=== PATIENT | female | born 2005 | race Caucasian/White ===

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

== ENCOUNTER → 2024-08-05 14:30 | Outpatient (BNVA) | payer MEDICAID, SELFPAY | PROVIDERS: PCP Family Medicine; Visit Provider Nurse Practitioner Family | DX: R00.2 Palpitations (principal) | CPT/HCPCS: 93005 ==

== ENCOUNTER → 2024-09-10 13:53 | Outpatient (BNVA) | payer MEDICAID, SELFPAY | PROVIDERS: PCP Family Medicine; Visit Provider Family Medicine | DX: Z30.9 Encounter for contraceptive management, unspecified (principal) | CPT/HCPCS: 81025 ==

== ENCOUNTER → 2024-09-23 07:40 | Outpatient (BNVA) | payer MEDICAID, SELFPAY | PROVIDERS: PCP Family Medicine; Visit Provider Emergency Medicine | DX: J02.9 Acute pharyngitis, unspecified (principal); J20.8 Acute bronchitis due to other specified organisms; B96.89 Other specified bacterial agents as the cause of diseases classified elsewhere; R10.32 Left lower quadrant pain | CPT/HCPCS: 87071; 87880 ==

== ENCOUNTER 2024-11-16 02:27 | Emergency (ER) | payer MEDICAID, SELFPAY ==
[2024-11-16 02:30] VITALS: BP 147/76; PULSE 92; RESP 18; TEMP 36.6; O2SAT 100; BMI 22.1
[2024-11-16 03:08] VITALS: PULSE 85; RESP 16; O2SAT 98
--- NOTE | 2024-11-16 03:08 | XRR_ITS ---
PROCEDURE INFORMATION: Exam: XR Chest Exam date and time: 11/16/2024 3:12 AM Age: 19 years old Clinical indication: C/O hemoptysis TECHNIQUE: Imaging protocol: Radiologic exam of the chest. Views: 1 view. COMPARISON: CR XR chest 1V portable [id number] 11/24/2022 12:29 AM FINDINGS: Lungs: Unremarkable. No consolidation. Pleural spaces: Unremarkable. No pleural effusion. No pneumothorax. Heart/Mediastinum: Unremarkable. No cardiomegaly. Bones/joints: Unremarkable. XR/XR chest 1V portable [id number] IMPRESSION: No acute findings.
--- NOTE | 2024-11-16 03:20 | W.ED.ANXIETY ---
HPI - Anxiety General: Chief Complaint: Anxiety Stated Complaint: stomach pain, spit up blood, super anxious Time Seen by Provider: 11/16/24 02:42 History of Present Illness: 19-year-old female with a history of anxiety. She has also been having abdominal pain. She was experiencing abdominal pain last night, which made her more anxious. She believes she had a panic attack at home. But, in the process of having this panic attack, she coughed up some bloody sputum, which made her more anxious. Anxiety is improved at this point, but she still has bloody sputum and is still having some upper abdominal pain. Related Data Home Medications ?Medication ?Instructions ?Recorded ?Confirmed medroxyprogesterone 150 mg/mL 150 mg IM .EVERY 3 MONTHS 10/23/23 11/05/24 intramuscular suspension Previous Rx's ?Medication ?Instructions ?Recorded sumatriptan succinate 25 mg tablet See Rx Instructions PO .COMPLEX 08/04/24 #10 tabs hydroxyzine HCl 50 mg tablet 50 mg PO QID PRN Anxiety #180 tabs 08/22/24 omeprazole 20 mg capsule,delayed 20 mg PO DAILY #90 caps 08/22/24 release quetiapine 50 mg tablet 50 mg PO BEDTIME #90 tabs 08/22/24 venlafaxine 75 mg capsule,extended 75 mg PO DAILY #90 caps 08/22/24 release 24 hr albuterol sulfate 90 mcg/actuation 2 puff inhalation Q6H PRN 09/23/24 aerosol inhaler shortness of breath or wheezing #8.5 grams fhjsegzchhumlwk-kmldkajkzubktji-DT 5 ml PO Q6H PRN cold symptoms #118 09/23/24 2 mg-30 mg-10 mg/5 mL oral syrup mL (Bromfed DM) dexamethasone 2 mg tablet 10 mg (5 x 2 mg) PO DAILY 1 day #5 09/23/24 tabs Allergies Allergy/AdvReac Type Severity Reaction Status Date / Time fluoxetine Allergy ALGY-Anaphy Verified 11/16/24 02:36 laxis [facility] ED PFSH: Medical History Depression Anxiety No pertinent family history Surgical History No pertinent past surgical history Family History Father Hypertension Social History Smoking and tobacco/nicotine status: current some day tobacco/nicotine user e-cigarettes E-Cigarette Details: vaporizer device and with nicotine Alcohol intake: never Substance/Drug Use: never Adopted: No service: No Current occupational exposures/hazards: No Current gender identity: Female Physical Exam Const: COMMON NORMALS: no acute distress GENERAL APPEARANCE: cooperative; not ill appearing and not frail appearing HENMT: COMMON NORMALS: normocephalic, atraumatic, Normal external nose present and Normal nasal mucous membranes and turbinates present HEAD & SCALP: normocephalic and atraumatic FACE & SINUS: normal facial exam and face symmetric NOSE: Normal external nose present, Normal nares present and Normal nasal mucous membranes and turbinates present; no Epistaxis present THROAT: posterior oropharynx normal Eye: COMMON NORMALS: Equal, round and reactive pupils present and EOMs intact bilaterally PUPIL: Yes Equal, round and reactive pupils present Neck/C-Spine: GENERAL: Yes trachea midline Chest: CHEST: Yes Symmetrical chest wall rise Resp: COMMON NORMALS: normal respiratory effort, No retractions, No use of accessory muscles and clear to auscultation bilaterally AUSCULTATION: clear to auscultation bilaterally Cardio: COMMON NORMALS: regular rate and regular rhythm RATE: regular rate RHYTHM: regular rhythm GI: COMMON NORMALS: Normal to inspection, nondistended, normoactive bowel sounds present and Soft to palpation PALPATION: Yes Soft to palpation and Yes Tenderness to palpation present (GI) (Epigastric) Details: LUQ and RUQ Extremity: COMMON NORMALS: no pedal edema Neuro: WILLAM COMA SCALE: document GCS findings Willam coma scale eye opening: Spontaneous Willam coma scale verbal response: Orientated Willam coma scale motor response: Obey commands Willam coma scale total score: 15 SENSORY EXAM: Yes extremities (intact) Psych: COMMON NORMALS: speech normal SPEECH: Yes normal speech Skin: COMMON NORMALS: no rashes or lesions noted GENERAL SKIN EXAM: no rashes or lesions noted Course Vital Signs: Vital signs: Vital Signs Temperature 97.8 F 11/16/24 02:30 Pulse Rate 82 11/16/24 04:52 Respiratory Rate 16 11/16/24 04:52 Blood Pressure 138/79 11/16/24 04:52 Pulse Oximetry 99 11/16/24 04:52 Oxygen Delivery Me thod Room Air 11/16/24 02:30 MDM - Anxiety Medical Decision Making Patient has had bloody sputum. She produces frothy moderate sputum in the ER. She is nontachycardic. Nonhypoxic. Her chest x-ray is normal. She does have some tenderness in the epigastrium and across the upper abdomen. Her CRP is 3. CBC is normal. BMP is not remarkable. Liver enzymes are normal. Urinalysis is negative Given normal laboratory findings, she will be allowed home. She knows to return for continued hemoptysis, or other new symptoms. Lab Data 11/16/24 03:16 11/16/24 03:16 Radiology Impressions Chest X-Ray 11/16/24 03:08 IMPRESSION: No acute findings. Laboratory Results WBC 8.34 10^3/uL (4.5-13.0) 11/16/24 03:16 RBC 4.44 10^6/uL (3.85-5.65) 11/16/24 03:16 Hgb 12.80 g/dL (12.4-14.8) 11/16/24 03:16 Hct 40.0 % (36-47) 11/16/24 03:16 MCV 90.1 fl (85-98) 11/16/24 03:16 MCH 28.8 pg (27-33) 11/16/24 03:16 MCHC 32.0 g/dL (30-55) 11/16/24 03:16 RDW 12.6 % (12.1-15.1) 11/16/24 03:16 Plt Count 248 10^3/cmm (157-399) 11/16/24 03:16 MPV 10.1 fL (7.4-10.4) 11/16/24 03:16 Neut % (Auto) 58.3 % 11/16/24 03:16 Lymph % (Auto) 32.5 % 11/16/24 03:16 Gila % (Auto) 6.8 % 11/16/24 03:16 Eos % (Auto) 1.6 % 11/16/24 03:16 Baso % (Auto) 0.6 % 11/16/24 03:16 Neut # (Auto) 4.86 10^3/uL (1.8-8.0) 11/16/24 03:16 Lymph # (Auto) 2.7 10^3/uL (1.5-6.5) 11/16/24 03:16 Gila # (Auto) 0.6 10^3/uL (0.2-0.9) 11/16/24 03:16 Eos # (Auto) 0.1 10^3/uL (0.0-0.8) 11/16/24 03:16 Baso # (Auto) 0.1 10^3/uL (0.0-0.1) 11/16/24 03:16 Nucleated RBC % (auto) 0 % 11/16/24 03:16 Nucleated RBCs # 0.0 /100WBC 11/16/24 03:16 PT 13.50 SECONDS (12.1-14.9) 11/16/24 03:16 INR 0.96 (0.8-1.2) 11/16/24 03:16 APTT 27.9 SECONDS (23.9-36.7) 11/16/24 03:16 Sodium 140 mmol/L (136-145) 11/16/24 03:16 Potassium 3.4 mmol/L (3.5-5.1) L 11/16/24 03:16 Chloride 107 mmol/L (98-107) 11/16/24 03:16 Carbon Dioxide 22 mmol/L (22-29) 11/16/24 03:16 Anion Gap 14.4 (5-19) 11/16/24 03:16 BUN 8 mg/dL (6-20) 11/16/24 03:16 Creatinine 0.7 mg/dL (0.5-0.9) 11/16/24 03:16 GFR Calculation 106.7 mL/min (90-130) 11/16/24 03:16 Glucose 82 mg/dL (65-115) 11/16/24 03:16 Calculated Osmolality 287 mOsm/kg (285-295) 11/16/24 03:16 Calcium 8.7 mg/dL (8.5-10.5) 11/16/24 03:16 Total Bilirubin 0.3 mg/dL (0.15-1.2) 11/16/24 03:16 AST 15 U/L (0-32) 11/16/24 03:16 ALT 12 U/L (0-33) 11/16/24 03:16 Alkaline Phosphatase 81 U/L (35-105) 11/16/24 03:16 C-Reactive Protein 3.0 mg/L (0.0-4.9) 11/16/24 03:16 Total Protein 7.0 g/dL (6.6-8.7) 11/16/24 03:16 Albumin 4.1 g/dL (3.5-5.2) 11/16/24 03:16 Globulin 2.9 g/dL (1.3-4.6) 11/16/24 03:16 HCG, Qual Negative (Negative) 11/16/24 03:16 Urine Color Yellow (Yellow) 11/16/24 03:30 Urine Appearance Clear (CLEAR) 11/16/24 03:30 Urine pH 6.5 (5-7) 11/16/24 03:30 Ur Specific [place] 1.006 (1.005-1.030) 11/16/24 03:30 Urine Protein Negative (Negative) 11/16/24 03:30 Urine Glucose (UA) Negative (Normal) 11/16/24 03:30 Urine Ketones Negative (Negative) 11/16/24 03:30 Urine Blood Negative (Negative) 11/16/24 03:30 Urine Nitrate Negative (Negative) 11/16/24 03:30 Urine Bilirubin Negative (Negative) 11/16/24 03:30 Urine Urobilinogen 1.0 mg/dL (Negative) 11/16/24 03:30 Ur Leukocyte Esterase Negative (Negative) 11/16/24 03:30 Urine RBC 0-2 /hpf (0-2) 11/16/24 03:30 Urine WBC 0-5 /hpf (0-5) 11/16/24 03:30 Ur Squamous Epith Cells 0-5 /hpf (0-5) 11/16/24 03:30 Amorphous Sediment Not Reportable 11/16/24 03:30 Urine Bacteria None seen /hpf (NONE) 11/16/24 03:30 Hyaline Casts 0-4 /lpf H 11/16/24 03:30 All radiology interpretation(s) finalized by discharge Discharge Plan Discharge Patient Disposition: Home Clinical Impression: Anxiety, Hemoptysis Condition: Stable Prescriptions: No Action venlafaxine 75 mg capsule,extended release 24hr 75 mg PO DAILY Qty: 90 1RF quetiapine 50 mg tablet 50 mg PO BEDTIME Qty: 90 1RF omeprazole 20 mg capsule,delayed release(DR/EC) 20 mg PO DAILY Qty: 90 1RF hydroxyzine HCl 50 mg tablet 50 mg PO QID PRN (Reason: Anxiety) Qty: 180 1RF jjfikhfqhhocnqj-yvkxfpira-QF [Bromfed DM] 2-30-10 mg/5 mL syrup 5 ml PO Q6H PRN (Reason: cold symptoms) Qty: 118 0RF albuterol sulfate 90 mcg/actuation HFA aerosol inhaler 2 puff inhalation Q6H PRN (Reason: shortness of breath or wheezing) Qty: 8.5 0RF dexamethasone 2 mg tablet 10 mg PO DAILY 1 Days Qty: 5 0RF Rx Instructions: take all at same time today sumatriptan succinate 25 mg tablet See Rx Instructions PO .COMPLEX Qty: 10 0RF Rx Instructions: take 1 tab at onset of headache; if no relief may repeat 1 tab after at least 2 hrs; max = 4 tabs/24 hr PO medroxyprogesterone 150 mg/mL suspension 150 mg IM .EVERY 3 MONTHS Discharge Orders: Discharge ED (Routine); Ordered 11/16/24 Ordered By: Tyler Woodward Referrals: Frederick Orta MD [Primary Care Provider] - 1-3 days Patient Instructions: Coughing Up Blood (Hemoptysis) (ED), Anxiety (ED), Opioid Safety, Pain Management Activity Restrictions/Additional Instructions: No major cause of coughing of blood is identified on your exam or imaging today. If this continues more than a couple of days, you will need follow-up as an outpatient for further testing. It is likely coming from your upper respiratory tract, and should clear up within 24 to 48 hours. Hydrate with plenty of clear liquids. Return for fever, coughing or vomiting clots, shortness of breath, other concerning symptoms. Call your doctor tomorrow morning for follow-up appointment. Print Language: Icelandic Coding Level of Care Code ED [employer] for Shayy Graham
[2024-11-16 03:22] LABS: Basophils # 0.1 10^3/uL (0.0-0.1); Basophils % 0.6 %; Eosinophils # 0.1 10^3/uL (0.0-0.8); Eosinophils % 1.6 %; Lymphocytes # 2.7 10^3/uL (1.5-6.5); Lymphocytes % 32.5 %; Mean Corpuscular Hemoglobin 28.8 pg (27-33); Mean Corpuscular Volume 90.1 fl (85-98); Mean Platelet Volume 10.1 fL (7.4-10.4); Monocytes # 0.6 10^3/uL (0.2-0.9); Monocytes % 6.8 %; Neutrophils # 4.86 10^3/uL (1.8-8.0); Neutrophils % 58.3 %; Nucleated Red Blood Cells % 0 %; Platelet Count 248 10^3/cmm (157-399); Red Blood Count 4.44 10^6/uL (3.85-5.65); Red Cell Distribution Width 12.6 % (12.1-15.1); White Blood Count 8.34 10^3/uL (4.5-13.0)
[2024-11-16 03:33] LABS: INR 0.96 (0.8-1.2)
[2024-11-16 03:34] LABS: Partial Thromboplastin Time 27.9 SECONDS (23.9-36.7)
[2024-11-16 03:34] LABS: Bilirubin Urine Negative (Negative); Blood Urine Negative (Negative); Glucose Urine UA Negative (Normal); Ketones Urine Negative (Negative); Leukocyte Esterase Urine Negative (Negative); Nitrate Urine Negative (Negative); Protein Urine Negative (Negative); Specific Gravity, Urine 1.006 (1.005-1.030); Urine Appearance Clear (CLEAR); Urine Color Yellow (Yellow); pH Urine 6.5 (5-7)
[2024-11-16 03:37] LABS: HCG, Serum Qual Negative (Negative)
[2024-11-16 03:38] LABS: Add Urine Microscopic? YES; Bacteria Urine None Seen /hpf; Hyaline Casts Urine 0-4 /lpf; RBC Urine 0-2 /hpf (0-2); Squamous Epithelial Cell Urine 0-5 /hpf (0-5); WBC Urine 0-5 /hpf (0-5)
[2024-11-16 03:42] LABS: Alanine Aminotransferase 12 U/L (0-33); Albumin Level 4.1 g/dL (3.5-5.2); Alkaline Phosphatase 81 U/L (35-105); Anion Gap 14.4 (5-19); Aspartate Amino Transferase 15 U/L (0-32); Blood Urea Nitrogen 8 mg/dL (6-20); Calcium 8.7 mg/dL (8.5-10.5); Carbon Dioxide 22 mmol/L (22-29); Chloride 107 mmol/L (98-107); Creatinine Clr Calc Pharmacy 135.4649; Globulin 2.9 g/dL (1.3-4.6); Glomerular Filtration Rate 106.7 mL/min (90-130); Glucose 82 mg/dL (65-115); Osmolality Calculated 287 mOsm/kg (285-295); Potassium 3.4 mmol/L (3.5-5.1); Sodium 140 mmol/L (136-145); Total Bilirubin 0.3 mg/dL (0.15-1.2)
[2024-11-16 04:52] VITALS: BP 138/79; PULSE 82; RESP 16; O2SAT 99
== END 2024-11-16 04:53 | disposition home or self-care (01) ==
PROVIDERS: Emergency Provider Emergency Medicine; PCP Family Medicine
DX: F41.9 Anxiety disorder, unspecified (principal); R04.2 Hemoptysis; F17.290 Nicotine dependence, other tobacco product, uncomplicated
CPT/HCPCS: 36415; 71045; 80053; 81001; 84703; 85025; 85610; 85730; 86140; 99284

== ENCOUNTER 2024-12-11 08:27 | Outpatient (CLI) | payer MEDICAID, SELFPAY ==
--- NOTE | 2024-12-11 08:30 | US_ITS ---
WS: [id number] RIGHT UPPER QUADRANT ULTRASOUND HISTORY: Abdominal pain COMPARISON: None available. Liver: 14.3 cm in length. Normal size liver and echogenicity. No bile duct dilatation or mass. Portal Vein: Normal hepatopetal flow with monophasic waveform. Gallbladder: Normally distended gallbladder with no stones or wall thickening. CBD: 0.2 cm Pancreas: Normal size and echogenicity. Right kidney: 10.1 cm in length. Normal size and echogenicity. No hydronephrosis or mass. Aorta and IVC: Unremarkable abdominal aorta and IVC. No ascites. US/US gall bladder [id number] IMPRESSION: Normal right upper quadrant ultrasound.
== END 2024-12-11 08:28 | disposition home or self-care (01) ==
PROVIDERS: PCP Family Medicine; Visit Provider Family Medicine
DX: R10.33 Periumbilical pain (principal)
CPT/HCPCS: 76705

== ENCOUNTER 2024-12-17 11:45 | Outpatient (CLI) | payer MEDICAID, SELFPAY ==
--- NOTE | 2024-12-17 11:51 | XRR_ITS ---
PROCEDURE INFORMATION: Exam: XR Right Ribs with PA Chest Exam date and time: 12/17/2024 12:13 PM Age: 19 years old Clinical indication: Chest wall pain; Right rib pain x 1 wk with pain while breathing, no known injury; Additional info: Right lateral rib pain. No trauma TECHNIQUE: Imaging protocol: Radiologic exam of the right ribs with PA chest. Views: 3 views COMPARISON: CR (CHEST, ) 11/16/2024 3:12 AM FINDINGS: Lungs: Unremarkable. No consolidation or mass. Pleural spaces: Unremarkable. No pleural effusion. No pneumothorax. Heart/Mediastinum: Unremarkable. No cardiomegaly. Bones/joints: Unremarkable. XR/XR ribs RT mn 3V w CXR1V [id number] IMPRESSION: No acute findings.
== END 2024-12-17 11:46 | disposition home or self-care (01) ==
PROVIDERS: PCP Family Medicine; Visit Provider Emergency Medicine
DX: R07.81 Pleurodynia (principal)
CPT/HCPCS: 71101

== ENCOUNTER 2025-01-30 07:26 | Outpatient (CLI) | payer MEDICAID, SELFPAY ==
--- NOTE | 2025-01-30 08:00 | NM_ITS ---
WS: [id number] NUCLEAR MEDICINE HIDA SCAN WITH GALLBLADDER EJECTION FRACTION HISTORY: gallbladder problem COMPARISON: Ultrasound 12/11/2024 TECHNIQUE: The patient was intravenously injected with 7.2 mCi of TC99m Mebrofenin. Immediate imaging over the right upper quadrant was followed by 5 minute image and additional images for a total of 60 minutes. Normal uptake of radiotracer throughout the liver. Activity identified in the gallbladder at 10 minutes and well distended by 60 minutes. Activity in the proximal small bowel was seen by 30 minutes. Good washout of the radiotracer from the liver by 60 minutes. The patient then drank 8 ounces of Ensure Plus. Ejection fraction at 60 minutes was 64%. Normal GB ejection fraction is 35-75%. Post fatty meal symptoms: None. NM/NM hepatobiliary w phar* [id number] IMPRESSION: 1. Normal HIDA scan. 2. Normal gallbladder ejection fraction.
== END 2025-01-30 07:27 | disposition home or self-care (01) ==
PROVIDERS: PCP Family Medicine; Visit Provider Surgery
DX: K82.9 Disease of gallbladder, unspecified (principal)
CPT/HCPCS: 78227; A9537